=== PATIENT | male | born 1945 | race Caucasian/White ===

== ENCOUNTER → 2018-11-18 | Outpatient (CLI) | payer OTHER ==
[~2018-11-18] VITALS: Ht 188 cm; Wt 108.9 kg
[~2018-11-18] MED LIST: AMITRIPTYLINE H25 M2 PO; CELEBREX 200 M200 M1 PO; DILTIAZEM 24HR120 M2 PO; ELIQUIS5 MG PO; GLUCOSAMINE HC500 MG PO; IBUPROFEN 200200 M1 PO; LIPITOR 20 MG T20 M1 PO; METFORMIN HCL500 MG PO; OMEPRAZOLE 20 M20 M1 PO; SYNTHROID100 MC1 PO; TENORMIN50 MG PO; THERA M PLUS T1 EAC2 PO
[2018-11-18 08:36] VITALS: BP 165/101
--- NOTE | 2018-11-18 09:47 | TEE ---
[facility] [address] [place] [address] TRANSESOPHAGEAL ECHOCARDIOGRAM Name: JULIANNE DORANTES Room #: REG [facility]#: [id number] Admission: 11/18/18 Attend Phys: Chevy Perry, Discharge: Date of : 47 Date of Service: 11/18/18 0947 Report #: [id number] THIS REPORT FOR: //name// APPROVED REPORT Study performed: 11/18/2018 08:56:29 EXAM: Comprehensive 2D, Doppler, and color-flow Echocardiogram Patient Location: Out-Patient Room #: cvl Status: routine HR: 103 bpm BP: 165/101 mmHg Rhythm: Tachycardia Other Information Study Quality: Good Indications Aflutter. Echo Enhancing Agent Indication: Rule out Shunt Agent(s) / Amount(s) Used: Agitated Saline 6 cc Procedure After obtaining informed consent, patient underwent transesophageal echo in the [employer]. Type of Sedation : Conscious Sedation Sedation was achieved intravenously with: Versed (4) Fentanyl (50) The KEESHA was performed without complications. Throughout the procedure, the blood pressure, pulse oximetry, cardiac rhythm, and rate were monitored. The patient tolerated the procedure without adverse effects. Recovery from conscious sedation was uneventful and vital signs were stable. Left Ventricle The left ventricle is normal size. There is normal LV segmental wall motion. There is normal left ventricular wall thickness. The left ventricular systolic function is normal. LVEF is 55-60%. Right Ventricle [facility] [address] [place] [address] TRANSESOPHAGEAL ECHOCARDIOGRAM Name: JULIANNE DORANTES Room #: REG CL [facility]#: [id number] Admission: 11/18/18 Attend Phys: Chevy Perry, Discharge: Date of : 47 Date of Service: 11/18/18 0947 Report #: [id number] The right ventricle is normal size. The right ventricular systolic function is normal. Atria Left atrium is dilated. No thrombus is visualized in the left atrium or appendage. No shunting noted by contrast bubble injection. Right atrium is dilated. Aortic Valve Aortic valve is trileaflet; mildly sclerotic. Trace aortic regurgitation. There is no aortic valvular stenosis. Mitral Valve The mitral valve is normal in structure. Mild mitral regurgitation. No evidence of mitral valve stenosis. Tricuspid Valve The tricuspid valve is normal in structure. Mild tricuspid regurgitation. Pulmonic Valve The pulmonary valve is normal in structure. Trace pulmonic regurgitation. Great Vessels The aortic root is normal in size. Mild atherosclerosis present in the aorta. IVC is normal in size and collapses >50% with inspiration. Pericardium There is no pericardial effusion. <Conclusion> The left ventricular systolic function is normal. There is normal LV segmental wall motion. LVEF is 55-60%. Both atria are dilated. No thrombus is visualized in the left atrium or appendage. No shunting noted by contrast bubble injection. Aortic valve is trileaflet; mildly sclerotic. Trace aortic regurgitation, no stenosis The mitral valve is normal in structure. Mild mitral regurgitation. [facility] [address] [place] [address] TRANSESOPHAGEAL ECHOCARDIOGRAM Name: JULIANNE DORANTES Kelli Room #: REG CL [facility]#: [id number] Admission: 11/18/18 Attend Phys: Chevy Perry, Discharge: Date of : 47 Date of Service: 11/18/1847 Report #: [id number] Mild atherosclerosis present in the aorta. There is no pericardial effusion. <ELECTRONICALLY SIGNED> By: Chevy Perry MD, [facility] 11/18/1847 6 6 Chevy Perry MD, [facility] /INF
--- NOTE | 2018-11-18 10:12 | NUR ---
PT CONT TO RECOVER WITH NO C/O. VSS. AFLUTTER. AT BEDSIDE. GIVEN DISCHARGE INSTRUCTIONS AND BOTH VOICE UNDERSTAND. PLAN FOR RETURN FOR ALBATION NEXT WEEK.
== END | disposition home or self-care (01) ==
LOC: CATH 07:57
DX: I08.0 Rheumatic disorders of both mitral and aortic valves (principal); I70.0 Atherosclerosis of aorta; I48.92 Unspecified atrial flutter; I12.9 Hypertensive chronic kidney disease with stage 1 through stage 4 chronic kidney disease, or unspecified chronic kidney disease; E11.22 Type 2 diabetes mellitus with diabetic chronic kidney disease; N18.9 Chronic kidney disease, unspecified; E78.5 Hyperlipidemia, unspecified; E03.9 Hypothyroidism, unspecified; E66.09 Other obesity due to excess calories; Z88.0 Allergy status to penicillin; Z79.01 Long term (current) use of anticoagulants; Z79.899 Other long term (current) drug therapy

== ENCOUNTER 2018-11-24 09:08 | Observation (INO) | payer OTHER ==
[2018-11-24] VITALS (8 sets, daily range): BP systolic 134–162; BP diastolic 85–101
[~2018-11-24] VITALS: Ht 188 cm; Wt 108.9 kg
[~2018-11-24 09:08] MED LIST changes: -IBUPROFEN 200200 M1 PO
[2018-11-24 09:46] LABS: ABSOLUTE NEUTROPHILS 5.4 thou/uL (1.4-8.2); BASOPHILS 0.5 % (0.0-2.0); EOSINOPHILS 2.6 % (0.0-3.0); HEMATOCRIT 46.2 % (42.0-52.0); LYMPHOCYTES 31.2 % (24.0-44.0); MCH 30.9 pg (26.0-34.0); MCHC 34.7 g/dL (28.0-37.0); MCV 89.1 fL (80.0-100.0); MONOCYTES 10.2 % (1.0-8.0); PLATELET COUNT 265 thou/uL (150-400); POLYS 55.5 % (36.0-66.0); RBC 5.19 mil/uL (4.50-6.00); WBC 9.7 thou/uL (4.0-11.0)
[2018-11-24 09:59] LABS: APTT 26.8 Seconds (24.5-32.8); CALCIUM 9.5 mg/dL (8.5-10.1); CREATININE 1.5 mg/dL (0.7-1.3); POTASSIUM 4.2 mmol/L (3.5-5.1); PROTIME 10.7 Seconds (9.3-11.4)
[2018-11-24 10:03] LABS: ALBUMIN 4.4 g/dL (3.4-5.0); TOTAL BILIRUBIN 0.9 mg/dL (<0.1-1.0); TOTAL PROTEIN 8.9 g/dL (6.4-8.2)
[2018-11-24] MEDS ORDERED: IBUPROFEN 200200 M1 PO (10:05)
--- NOTE | 2018-11-24 18:34 | NUR ---
PT CARE ASSUMED APPROX 1630. ADMITTED POST AFIB ABLATION. ORDERS ARE TO DISCHARGE PT ONCE POST POCEDURE BEDREST COMPLETED AND IF NO POST PROCEDURE COMPLICATIONS WERE NOTED. PT MEETS ALL CRITERIA FOR DISCHARGE. VSS. RIGHT GROIN POST SHEATH SITE C/D/I WITHOUT NOTED BRUISING OF HEMATOMA. PT UP WITH STEADY GAIT. MONITORED SR. PT ATE DINNER AND REPORTS BEING READY TO GO. DISCHARGE PAPERWORK REVIEWED WITH PT AND SPOUSE. BOTH DENY QUESTIONS OR CONCERNS REGARDING DISCHARGE. APPT CARDS GIVEN. POST CATH SITE CARE INSTRUCTIONS GIVEN. ALL PAPERWORK AND BELONGINGS IN PT POSSESSION.IV OUT, TELE OFF. HOSPITAL STAFF TO ESCORT PT OUT TIMELY.
--- NOTE | 2018-12-05 14:23 | P ---
[facility] [place] [address] PROCEDURE REPORT Name: JULIANNE DORANTES Room #: 212-P [facility]#: [id number] Admission: 11/24/18 Attend Phys: Holden Haque MD Discharge: 11/24/18 Date of : 47 Report #: [id number] THIS REPORT FOR: //name// CC: Jose Haque DATE OF SERVICE: 11/24/2018 SVT ABLATION PREOPERATIVE DIAGNOSIS: Typical atrial flutter. POSTOPERATIVE DIAGNOSIS: Typical atrial flutter. PROCEDURES PERFORMED: 1. SVT ablation, CPT code 38024. 2. EP with left atrial pacing and recording, CPT code 57316. 3. Program stimulation and pacing after IV drug infusion, CPT code 91941. 4. 3D mapping, CPT code 27202. HISTORY OF PRESENT ILLNESS: The patient is a 73-year-old with history of atrial flutter, here for ablation. ANESTHESIA: The patient underwent MAC anesthesia with no anesthesia related complications. DESCRIPTION OF PROCEDURE: The patient underwent informed consent. We discussed the details of the procedure including the risks, which include but not limited to bleeding, vascular damage, cardiac perforation, stroke, ID as well as damage to the [place] conduction system requiring permanent pacemaker. He understood these risks and is willing to proceed. The patient was brought to the EP laboratory in a fasting and sedated state. At baseline, the patient was in atrial flutter with a ventricular cycle length of 660 milliseconds, QRS duration 90 milliseconds, QT interval 360 milliseconds and atrial cycle length of 230 milliseconds. I obtained access to the right femoral vein x 3, placing an 8 and two 7-Syrian short sheaths using the modified Seldinger technique. Next, under fluoroscopy, I placed a decapolar catheter easily in the coronary sinus and a Duo-Decapolar catheter into the right atrium. The patient was in a counter clockwise atrial flutter with a proximal to distal activation along the coronary sinus. Entrainment was performed along the cavotricuspid isthmus and the PPI minus tachycardia cycle length was 30 milliseconds. As such, a diagnosis of typical atrial flutter was made. Left atrial pacing and recording was performed from the coronary sinus catheter. Next, an 8 mm ablation catheter and a ramp sheath was placed into the right atrium. Ablation was performed at 70 [place] and 60 degrees. A continuous drag [facility] [address] [place] [address] PROCEDURE REPORT Name: JULIANNE DORANTES Room #: 212-P [facility] Twyla Ramsey#: [id number] Admission: 11/24/18 Attend Phys: Holden Haque MD Discharge: 11/24/18 Date of : 47 Report #: [id number] lesion was performed and once I reached the posterior aspect of the isthmus, the atrial flutter terminated. The transisthmus conduction time post-ablation was 145 milliseconds. An EP study was performed and isoproterenol infusion was initiated. AV block was noted at 310 milliseconds, AV kelvin ERP is noted at 220 milliseconds at [address] cycle length. There was no inducible SVT nor there was any inducible atrial fibrillation. I again checked my line and there were no additional signals to ablate and there were good double potentials and the transisthmus conduction time was 145 milliseconds with pacing both medial and lateral to line consistent with bidirectional block. Post-ablation, the patient was in sinus rhythm with sinus cycle length of 560 milliseconds, DC interval 180 milliseconds, QRS duration 85 milliseconds, QT interval 350 milliseconds. As such, catheters and sheaths were pulled. Hemostasis obtained and the patient awoke neurologically and hemodynamically intact. No complications and no significant bleeding. CONCLUSIONS: 1. Successful ablation of cavotricuspid isthmus dependent flutter with evidence of bidirectional block. 2. Normal SA kelvin function. 3. Normal AV kelvin function. 4. No inducible arrhythmias on or off isoproterenol. <ELECTRONICALLY SIGNED> By: Holden Haque MD 12/05/18 1423 1207 0010 Holden Haque MD /nt
== END 2018-11-24 19:00 | disposition home or self-care (01) ==
LOC: CATH 09:08 → 2N 16:32
PROVIDERS: ADMIT Internal Medicine Cardiovascular Disease
DX: I48.3 Typical atrial flutter (principal); E78.5 Hyperlipidemia, unspecified; E03.9 Hypothyroidism, unspecified; I12.9 Hypertensive chronic kidney disease with stage 1 through stage 4 chronic kidney disease, or unspecified chronic kidney disease; E11.22 Type 2 diabetes mellitus with diabetic chronic kidney disease; N18.3 Chronic kidney disease, stage 3 (moderate); Z79.899 Other long term (current) drug therapy; Z79.84 Long term (current) use of oral hypoglycemic drugs
CPT/HCPCS: 70005

== ENCOUNTER → 2019-05-28 | Outpatient (CLI) | payer OTHER ==
[~2019-05-28] MED LIST changes: +IBUPROFEN 200200 M1 PO
== END ==
LOC: SJCVC 14:50
DX: I48.3 Typical atrial flutter (principal); I12.9 Hypertensive chronic kidney disease with stage 1 through stage 4 chronic kidney disease, or unspecified chronic kidney disease; E11.22 Type 2 diabetes mellitus with diabetic chronic kidney disease; N18.9 Chronic kidney disease, unspecified; E11.40 Type 2 diabetes mellitus with diabetic neuropathy, unspecified; M19.90 Unspecified osteoarthritis, unspecified site; E78.5 Hyperlipidemia, unspecified; E03.9 Hypothyroidism, unspecified; K21.9 Gastro-esophageal reflux disease without esophagitis; Z82.49 Family history of ischemic heart disease and other diseases of the circulatory system; Z79.899 Other long term (current) drug therapy; Z79.84 Long term (current) use of oral hypoglycemic drugs

== ENCOUNTER → 2019-11-26 | Outpatient (CLI) | payer OTHER | LOC: SJCVC 14:42 | PROVIDERS: ATTEND Internal Medicine Cardiovascular Disease | DX: I48.3 Typical atrial flutter (principal); E11.22 Type 2 diabetes mellitus with diabetic chronic kidney disease; I12.9 Hypertensive chronic kidney disease with stage 1 through stage 4 chronic kidney disease, or unspecified chronic kidney disease; N18.3 Chronic kidney disease, stage 3 (moderate); Z79.899 Other long term (current) drug therapy ==

== ENCOUNTER → 2020-05-26 | Outpatient (CLI) | payer OTHER | LOC: SJCVC 16:47 | PROVIDERS: ATTEND Internal Medicine Cardiovascular Disease | DX: I48.3 Typical atrial flutter (principal); I12.9 Hypertensive chronic kidney disease with stage 1 through stage 4 chronic kidney disease, or unspecified chronic kidney disease; N18.30 Chronic kidney disease, stage 3 unspecified; E66.9 Obesity, unspecified; E11.51 Type 2 diabetes mellitus with diabetic peripheral angiopathy without gangrene; E78.5 Hyperlipidemia, unspecified; E03.9 Hypothyroidism, unspecified; K21.9 Gastro-esophageal reflux disease without esophagitis; Z88.0 Allergy status to penicillin; Z79.899 Other long term (current) drug therapy; Z79.84 Long term (current) use of oral hypoglycemic drugs ==